=== PATIENT | female | born 1960 | race Two or more races ===

== ENCOUNTER 2021-01-30 23:34 | Emergency (ER) | payer OTHER ==
[~2021-01-30] VITALS: Ht 167.6 cm; Wt 54.4 kg
[2021-01-30 23:40] VITALS: BP 122/81
--- NOTE | 2021-01-30 23:40 | NUR ---
CAMRON FROM HOME FOR C/O RIGHT WRIST PAIN AND DEFORMITY S/P FALL FROM THE STAIRS. PT DENIED HITTING THE HEAD OR KO. WAS ASSISTED TO BED 2, VSS. WILL CONT TO MONITOR,
[2021-01-30] MEDS ORDERED: HYDROCODONE/APAP 5/325MG TABLET ONE (23:46)
[2021-01-31] MEDS ORDERED: HYDROCODONE/APAP 5/325MG TABLET PO ONE
[2021-01-31] MEDS ORDERED: BUPIVACAINE 0.5 % PF 150 MG/30 ML VIAL ONE (00:15)
[2021-01-31] MEDS ORDERED: LIDOCAINE HCL/MPF 1% 30 ML VIAL IJ ONE (00:16)
--- NOTE | 2021-01-31 00:45 | NUR ---
DR SKELTON AT BED SIDE FOR R WRIST FRACTURE REDUCTION. CONSENT WAS OBTAINED FROM THE PT.
--- NOTE | 2021-01-31 00:50 | NUR ---
sugartong splint placed on patient's right wrist.
[2021-01-31] MEDS ORDERED: HYDR-3976 GT (00:51)
--- NOTE | 2021-01-31 00:54 | NUR ---
XRAY AT BEDSIDE
--- NOTE | 2021-01-31 01:41 | NUR ---
Patient returned home with [employer] driving
--- NOTE | 2021-01-31 01:41 | NUR ---
Patient discharged to home in stable condition. Written and verbal after care instructions given. Patient verbalizes understanding of instruction.
== END 2021-01-31 01:41 | disposition home or self-care (01) ==
LOC: ER 23:37
DX: S52.571A Other intraarticular fracture of lower end of right radius, initial encounter for closed fracture (principal); F32.9 Major depressive disorder, single episode, unspecified; F17.200 Nicotine dependence, unspecified, uncomplicated; Z79.899 Other long term (current) drug therapy; W01.0XXA Fall on same level from slipping, tripping and stumbling without subsequent striking against object, initial encounter; Y93.89 Activity, other specified; Y92.89 Other specified places as the place of occurrence of the external cause; Y99.8 Other external cause status
CPT/HCPCS: 25605; 73110 ×2; 99284; J3490 ×2